=== PATIENT | male | born 1940 | race Caucasian/White ===

== ENCOUNTER 2023-12-01 08:10 | Day surgery (SDC) | payer MEDICARE, OTHER, SELFPAY ==
[2023-11-27 13:33] VITALS: BMI 24.8
[2023-12-01] VITALS (11 sets, daily range): BP systolic 113–135; BP diastolic 69–108; BMI 22.0
[2023-12-01 10:59] LABS: ACT-LR - POC 335 Seconds (116-155)
[2023-12-01 11:22] LABS: ACT-LR - POC 314 Seconds (116-155)
[2023-12-01 12:00] LABS: ACT-LR - POC 371 Seconds (116-155)
--- NOTE | 2023-12-01 12:19 | ITS.CL.ABL ---
[employer] - Ablation
Ablation
Procedure Report:
ELECTROPHYSIOLOGIC STUDY AND POSSIBLE ABLATION
DATE: December 01, 2023
Primary Care Provider: Dr. Mendoza low
Primary Product Finisher: Dr. Idalmis Malhotra
INDICATION:
Symptomatic Atrial Fibrillation and atypical atrial flutter.
Persistent
HISTORY: See H and P.
Symptomatic AF, poorly controlled with attempted medical therapy.
He underwent PVI [facility] in 2010. He has recurred with atrial fibrillation as well as a typical atrial flutter. Of note he also has a remote history of mitral valve repair with an annuloplasty ring.
HAS-BLED: 1
Age
CHADSVASc: 2
Age
PRESENTING RHYTHM: Atypical atrial flutter
HISTORY: See H and P.
Symptomatic AF, poorly controlled with attempted medical therapy.
ANTIARRHYTHMIC DRUG: Metoprolol
ANTICOAGULATION: Apixaban
'TIME-OUT': called and confirmed.
SEDATION/ANESTHESIA: provided via the anesthesia department using general anesthesia.
PROCEDURE:
Ultrasound Guidance performed by ia was utilized for femoral venous Vascular Access b/l.
A decapolar CS catheter was placed within the CS for mapping and pacing.
The intracardiac ultrasound catheter was positioned in the RA for continuous intracardiac ultrasound imaging.
Heparin bolus and infusion to target ACT at 300 -350 seconds was administered. Transseptal puncture was performed. This entailed advancing a sheath with dilator into the superior vena cava and withdrawing both (monitoring intracardiac ultrasound,
fluoroscopy and tip pressure) with the tip oriented toward the atrial septum. The fossa ovalis was engaged (indicated by sudden displacement of the sheath tip as well as tenting of the fossa seen on intracardiac ultrasound).
Partnerbyte transseptal system was used. Left atrial catheter position was confirmed by echocardiographic imaging, pressure monitoring (LA mean pressure 9 mm Hg) and fluoroscopy. The sheath was advanced over the dilator and positioned in the left
atrium.
The multipolar mapping catheter was initially positioned through the transseptal sheath for high density mapping (Sánchez Grid).
Geometry and voltage mapping was performed using the Comply Serve multipolar grid catheter. Navex was utilized for three-dimensional electroanatomical mapping.
Presenting rhythm is an atypical atrial flutter. Entrainment from the right atrium finds this to be outside the tachycardia circuit. Entrainment from the left atrium at the posterolateral mitral valve annulus finds this to be within the
tachycardia circuit. A high density activation map was created and activation is consistent with a xhuuge-ge-huugu tachycardia proceeding down the posterior wall of the left atrium.
The [employer] Pulse Select PFA catheter and system was used for cardiac ablation. Catheter positioning was guided and confirmed using both I.C.E. and fluoroscopy.
Initially pulse electric field energy was delivered at the mitral valve annulus from the left inferior pulmonary vein down to the mitral valve annulus but this did not interrupt the tachycardia. It was then decided to ablate the posterior wall of
the left atrium and during ablation at the floor of the left atrium the tachycardia terminated. Additional ablation was delivered to the posterior wall of the left atrium to completely isolate the left atrium. Of note previous mapping of the
pulmonary veins found isolation at the ostium of the left superior, left inferior, right inferior pulmonary veins but there is reconnection at the right superior pulmonary vein towards its anterior septal quadrant. Pulse electric field energy was
utilized to isolate the right superior pulmonary vein. After ablation, high density electroanatomical mapping was performed demonstrating electrical line of block at the mitral valve annulus from the left inferior pulmonary vein down to the mitral
valve annulus. Additionally high output pacing from this area failed to capture any atrial tissue. There is isolation of the posterior wall of the left atrium as well although there is still significant voltage at the posterior superior left
atrium towards the antrum of the left superior pulmonary vein. The right superior pulmonary vein is now bidirectionally blocked. The ablation catheter was then substituted to provide additional ablation to the posterior wall of the left atrium and
create complete large area posterior wall ablation.
I.C.E. :
Pre-Ablation Post-Ablation
LVEF: 55 % 55 %
WMA: none none
Pericardial effusion: trace trace
COMPLICATIONS:
None
SUMMARY:
- Mapping and ablation to isolate the PVs (right superior pulmonary vein and its anterior superior quadrant)
- Additional AF ablation set after PVI (posterior wall of the left atrium)
- Additional tachycardia map and ablate (mitral annular flutter)
- 3-D Electroanatomical Mapping
- Intracardiac Ultrasound
Post ablation, I discussed today's findings and results with the patient's .
RECOMMENDATIONS:
- Observe in monitored bed.
- Maintain oral anticoagulation.
- Office visit with me in 3 months.
- Continue cardiovascular care with Bala Malhotra
Copy to:
Dr. Donaldson present
Dr. Idalmis Malhotra
--- NOTE | 2023-12-01 15:56 | W.PN.UPDATE ---
Update Note
Progress Note Update
Pt seen post PVI. Bilat groin sites without ht/bleeding, non tender. OOB ambulating. Post EKG NSR 80s w/RBBB as before, no acute changes. Resume eliquis today, continue other meds as before. Followup with Dr. Chapman as scheduled and with
Stram thereafter. Home later today if groin site/tele remain stable.
[2023-12-02 11:03] LABS: ACT-LR - POC > 397 Seconds (116-155)
== END 2023-12-01 17:00 | disposition home or self-care (01) ==
LOC: CATH 08:10
PROVIDERS: ATTENDING PHYSICIAN Internal Medicine Cardiovascular Disease; FAMILY PHYSICIAN Internal Medicine; OTHER PHYSICIAN Internal Medicine Cardiovascular Disease
DX: I48.19 Other persistent atrial fibrillation (principal); Q87.418 Marfan syndrome with other cardiovascular manifestations; I34.1 Nonrheumatic mitral (valve) prolapse; F41.9 Anxiety disorder, unspecified; F32.A Depression, unspecified; N40.0 Benign prostatic hyperplasia without lower urinary tract symptoms; I10 Essential (primary) hypertension; I48.0 Paroxysmal atrial fibrillation; R07.89 Other chest pain; I48.3 Typical atrial flutter; I48.4 Atypical atrial flutter; R06.02 Shortness of breath; R53.83 Other fatigue; R00.2 Palpitations; Z79.01 Long term (current) use of anticoagulants; Z79.899 Other long term (current) drug therapy; G47.00 Insomnia, unspecified
CPT/HCPCS: C1732; C1894; C1733; C1769; C1892; C1730; C1766; 76937; 85347; 86900; 86901; 93005; 93655; 93656; 93657

== ENCOUNTER 2024-04-23 15:54 | Emergency (ER) | payer MEDICARE, OTHER, SELFPAY ==
[2024-04-23] VITALS (21 sets, daily range): BP systolic 114–150; BP diastolic 72–107; BMI 21.7
--- NOTE | 2024-04-23 15:59 | ED.GENMED ---
ED Provider Triage
<Izabella Dempsey PA-C - Last Filed: 04/23/24 16:08>
-
Patient seen by provider in Triage?: Seen in Triage
Attestation: A medical screening examination has been initiated by a qualified medical provider. Based on the assessment performed at this time, it has been determined that an emergent medical condition may exist and the patient has been informed
that further medical evaluation and possible additional diagnostic testing may be needed.
HPI: 83yoM here with palpitations. Feels like heart is racing. Noticed after getting out of the shower around 1pm. Intermittent chest discomfort. Hx of afib.
GENERAL: Alert , in no apparent distress
EYE: No visual abnormalities.
NECK: Trachea midline
ENT: No visible abnormalities.
LUNGS: No acute respiratory distress
NEUROLOGICAL: Alert and oriented
SKIN: Skin intact. No visible changes.
MUSCULOSKELETAL: Moving extremities normally
PSYCH: Normal and appropriate interaction.
This is a medical evaluation conducted in person to initiate diagnostic evaluation and provide initial therapeutics. Please see further documentation by the treating clinician.
Cardiac labs, TSH, magnesium, and EKG ordered.
History of Present Illness
<Izabella Dempsey PA-C - Last Filed: 04/23/24 16:08>
General
Chief Complaint: Heart Rate Problem
Time Seen by Provider: 04/23/24 17:35
<Jose Fields DO - Last Filed: 04/23/24 19:28>
History of Present Illness
History of Present Illness:
TIME OF INITIAL ENCOUNTER: 5:50 PM
HPI: The patient has a history of atrial fibrillation has had an ablation. The patient presents with sensation of palpitations and 'racing heart'. He may have had some chest discomfort earlier in the day. He was mostly concerned because when he
listen to his heart with a stethoscope, he noticed that it was irregular. He had a cardiac ablation with Dr. Chapman this past November. His primary pan puller is at [place].
EXAM:
GENERAL: Well appearing in no distress
HEENT: Moist oral mucosa
CARDIOVASCULAR: No murmurs, normal heart rate, irregular rhythm, No chest wall tenderness
PULMONARY: No respiratory distress, breath sounds are clear and equal
ABDOMEN: Soft with no peritoneal signs, no tenderness
NEUROLOGIC: Excellent strength all extremities, no coordination deficits
PSYCHIATRIC: Appropriate mental status, normal insight and judgement
EXTREMITIES: Nontender, no edema, moves all extremities equally
SKIN: No rash, no lesions
NUMBER AND COMPLEXITY OF PROBLEMS ADDRESSED AT THE ENCOUNTER
� Chronic conditions affecting care: Atrial fibrillation
� Acute Exacerbation and/or Progression of Chronic Illness: This is an acute problem
� Differential Diagnosis includes: Atrial fibrillation, atrial tachycardia, atrial flutter, dysrhythmia, thyroid disease
AMOUNT AND/OR COMPLEXITY OF DATA TO BE REVIEWED AND ANALYZED
� I performed an independent evaluation of and my interpretation is:
EKG: Atrial tachycardia, rate bundle-branch block
CT:
X-rays:
Laboratory Studies: CBC normal, chemistries relatively unremarkable, troponin less than 0.012, TSH normal
Other:
� Review of other/old records: I reviewed the notes from this past November when patient had the ablation
� Clinical information was obtained by an independent historian: I spoke to the at bedside
� Prescriptions/Medications Considered but not given:
� Further testing considered but not performed:
RISK OF COMPLICATIONS AND/OR MORBIDITY OR MORTALITY OF PATIENT MANAGEMENT
� Social determinants of health affecting care: Lives at home
� Discussion with other providers: I discussed case with Dr. Muñoz agree that there is no clear contraindication and he agrees that patient could be cardioverted.
� Escalation of care including admission/observation vs risk of discharge considered: The patient was cardioverted in 1 attempt without difficulty. Overall he feels improved.
ANY OTHER UPDATES:
7 PM: After cardioversion, the patient is back in sinus rhythm. EKG #2 shows sinus rhythm with PVCs, right bundle branch block again noted
Phy Exam
<Jose Fields DO - Last Filed: 04/23/24 19:28>
Physical Exam
Physical Exam:
See HPI
Course
<Izabella Dempsey PA-C - Last Filed: 04/23/24 16:08>
Orders/Labs/Results
Orders:
Orders
04/23/24 15:55
EKG [Electrocardiogram (*1)] Urgent
Reason for Study: Palpitations
EKG- Treatment ONCE
04/23/24 16:17
Complete Blood Count/With Diff Urgent
Comprehensive Metabolic Panel Urgent
Magnesium Urgent
TSH Reflex To Free T4 Urgent
Troponin I Urgent
04/23/24 18:30
Propofol [Diprivan] 20 ml .ROUTE .STK-MED
04/23/24 18:44
EKG with chest pain [ECG as needed] As Directed
ECG as needed for:: Rhythm Change
04/23/24 18:49
EKG [Electrocardiogram (*1)] Urgent
Reason for Study: Atrial Fibrillation
Comment: post cardioversion
04/23/24 18:50
EKG- Treatment ONCE
Abnormal Lab Results
04/23/24
16:17
WBC 4.7 L 10^3/uL
(4.8-10.8)
Absolute Lymphs (auto) 1.0 L 10^3/uL
(1.2-3.4)
Monocytes % 10.3 H %
(1.7-9.3)
Carbon Dioxide 31 H mmol/L
(22-30)
BUN 21 H mg/dl
(9-20)
Glucose 145 H mg/dl
(70-99)
04/23/24 16:17
12/13/24 16:17
Vital Signs
Initial and Last Documented VS:
Initial Vital Signs
Temp Pulse Resp BP Pulse Ox
36.7 C 86 20 117/86 99
04/23/24 16:00 04/23/24 16:00 04/23/24 16:00 04/23/24 16:00 04/23/24 16:00
Last Documented Vital Signs
Temp Pulse Resp BP Pulse Ox
36.6 C 72 17 134/74 99
04/23/24 19:26 04/23/24 19:21 04/23/24 19:21 04/23/24 19:21 04/23/24 19:21
<Jose Fields, DO - Last Filed: 04/23/24 19:28>
Orders/Labs/Results
Orders:
Orders
04/23/24 15:55
EKG [Electrocardiogram (*1)] Urgent
Reason for Study: Palpitations
EKG- Treatment ONCE
04/23/24 16:17
Complete Blood Count/With Diff Urgent
Comprehensive Metabolic Panel Urgent
Magnesium Urgent
TSH Reflex To Free T4 Urgent
Troponin I Urgent
04/23/24 18:30
Propofol [Diprivan] 20 ml .ROUTE .STK-MED
04/23/24 18:44
EKG with chest pain [ECG as needed] As Directed
ECG as needed for:: Rhythm Change
04/23/24 18:49
EKG [Electrocardiogram (*1)] Urgent
Reason for Study: Atrial Fibrillation
Comment: post cardioversion
04/23/24 18:50
EKG- Treatment ONCE
Abnormal Lab Results
04/23/24
16:17
WBC 4.7 L 10^3/uL
(4.8-10.8)
Absolute Lymphs (auto) 1.0 L 10^3/uL
(1.2-3.4)
Monocytes % 10.3 H %
(1.7-9.3)
Carbon Dioxide 31 H mmol/L
(22-30)
BUN 21 H mg/dl
(9-20)
Glucose 145 H mg/dl
(70-99)
04/23/24 16:17
04/23/24 16:17
Vital Signs
Initial and Last Documented VS:
Initial Vital Signs
Temp Pulse Resp BP Pulse Ox
36.7 C 86 20 117/86 99
04/23/24 16:00 04/23/24 16:00 04/23/24 16:00 04/23/24 16:00 04/23/24 16:00
Last Documented Vital Signs
Temp Pulse Resp BP Pulse Ox
36.6 C 72 17 134/74 99
04/23/24 19:26 04/23/24 19:21 04/23/24 19:21 04/23/24 19:21 04/23/24 19:21
Procedures
<Jose Fields, DO - Last Filed: 04/23/24 19:28>
Cardioversion
Indication:: Afib
Performed by:: , Dr. Fields
Synchronized?: Yes
Energy Used: 200 joules
Number of attempts: 1
Successful?: Yes
ASA Risk Score: Class III
Any reaction or bad outcome to prior sedation/anesthesia?: No history of a reaction
Sedation level to be attained: moderate
Chart and allergies reviewed: Yes
Patient reassessed prior to sedation: Yes
Time out completed at (validating right patient & procedure): 18:38
History of difficult intubation: No
Airway free of obstruction: Yes
Patient has a gag reflex: Yes
Patient is able to open mouth: Yes
Patient has no dentures: Yes
Patient has no loose teeth: Yes
Medication administered by Provider during Moderate Sedation: IV Propofol (mg)
Total dose administered: 50
Time drug administered: 18:38
Start Time: 18:38
Stop Time: 18:49
<Jose Fields DO - Last Filed: 04/23/24 19:28>
*Critical Care Note
Total Time (30-74mins, 75-104mins- exclusive of procedures): Not Applicable
ED Attending Note
<Izabella Dempsey PA-C - Last Filed: 04/23/24 16:08>
-
Portions of this chart may have been created with voice recognition software.� Occasional wrong word or��sound alike� substitutions may have occurred due to the inherent limitations of voice recognition software.
Discharge Plan
Departure
Patient Disposition: Home (Routine Discharge)
Date of Disposition: 04/23/24
Time of Disposition: 19:04
Patient with high blood pressure during this ER visit?: Yes
Discharge Problem:
Atrial flutter with rapid ventricular response
Instructions: Atrial Fibrillation (DC)
Prescriptions:
No Action
metoprolol succinate 50 mg Tablet Extended Release 24 Hr
75 mg PO DAILY
metoprolol succinate 50 mg Tablet Extended Release 24 Hr
50 mg PO QPM
tramadol 50 mg Tablet
50 - 100 mg PO Q8H PRN (Reason: pain)
furosemide 20 mg Tablet
20 mg PO DAILY
sertraline [Zoloft] 50 mg Tablet
50 mg PO QPM
loratadine 10 mg Tablet
10 mg PO QPM
Eliquis 5 mg Tablet
5 mg PO BID
spironolactone 25 mg Tablet
25 mg PO MOWEFR
tamsulosin 0.4 mg Capsule
0.4 mg PO QPM
ibuprofen [Advil] 200 mg Tablet
200 mg PO Q6H PRN (Reason: discomfort)
zolpidem [Ambien] 10 mg Tablet
10 mg PO HS PRN (Reason: sleep)
Referrals:
Mendoza Vega DO [Family Provider] -
Cabrera Chapman MD [Active] - Follow up in 5-7 days
Idalmis Malhotra MD [Non-Admitting Privileges] - Follow up in 5-7 days
Activity Restrictions/Additional Instructions:
Continue your medication including the Eliquis. Follow-up with your pan puller either at [place] or with Dr. Chapman. Return here if worse or other concerns.
Interventions
Interventions:
*Risk Screen - Suicide Last Done: 04/23/24 18:25
*General Assessment Last Done: 04/23/24 16:00
*Neglect/Abuse Screening Last Done: 04/23/24 18:25
*ED COVID-19 Vaccine History Last Done: 04/23/24 18:25
ED- Cardiac Assessment Last Done: 04/23/24 18:25
ED- Pulmonary Assessment Last Done: 04/23/24 18:25
Discharge Date and Time
Print Language: BELARUSIAN
[2024-04-23 16:38] LABS: % Basophils 1.3 % (0-2); % Immature Granulocytes 0.2 % (0-0.5); % Lymphocytes 21.1 % (20.5-51.1); % Monocytes 10.3 % (1.7-9.3); % Neutrophils 64.1 % (42.2-75.2); Absolute Basophils 0.1 10^3/uL (0-0.2); Absolute Eosinophils 0.1 10^3/uL (0-0.7); Absolute Monocytes 0.5 10^3/uL (0.1-0.6); Hematocrit 43.2 % (39.0-52.0); Hemoglobin 14.3 g/dL (13.0-18.0); Mean Corp Hgb Conc. 33.1 g/dL (33.0-37.0); Mean Corpuscular Hgb 29.4 pg (27.0-31.0); Mean Corpuscular Volume 88.7 fL (80.0-94.0); Mean Platelet Volume 8.6 fL (7.4-10.4); Nucleated Red Blood Cells % 0 % (-); Platelet Count 242 10^3/uL (130-400); Red Blood Cell Count 4.87 10^6/uL (4.70-6.10); Red Cell Dist. Width 13.3 % (11.5-14.5); White Blood Cell Count 4.7 10^3/uL (4.8-10.8)
[2024-04-23 16:42] LABS: ALT (SGPT) 23 U/L (0-50); AST (SGOT) 32 U/L (17-59); Albumin 4.5 g/dl (3.5-5.0); Alkaline Phosphatase 60 U/L (38-126); Blood Urea Nitrogen 21 mg/dl (9-20); Calcium 9.5 mg/dl (8.4-10.2); Carbon Dioxide 31 mmol/L (22-30); Chloride 98 mmol/L (98-107); Glucose 145 mg/dl (70-99); Magnesium 2.1 mg/dl (1.6-2.3); Potassium 4.9 mmol/L (3.5-5.1); Sodium 136 mmol/L (135-145); Total Protein 7.5 g/dl (6.3-8.2); eGFR > 60.00
[2024-04-23 16:53] LABS: Troponin I < 0.012 ng/ml
[2024-04-23 17:12] LABS: TSH Reflex To Free T4 1.02 uIU/ml (0.47-4.68)
--- NOTE | 2024-04-23 18:55 | EDRN ---
Propofol given by MD Fields in the following doses and times:
Propofol 20mg @1838
Propofol 20 mg @ 1839
Propofol 10mg @1840
== END 2024-04-23 19:43 | disposition home or self-care (01) ==
LOC: EMR 15:54
PROVIDERS: Physician Assistant; EMERGENCY PHYSICIAN Emergency Medicine; FAMILY PHYSICIAN Internal Medicine
DX: I48.92 Unspecified atrial flutter (principal); R03.0 Elevated blood-pressure reading, without diagnosis of hypertension
CPT/HCPCS: 92960; 99285; 99152; 80053; 83735; 84443; 84484; 85025; 93005

== ENCOUNTER 2024-11-05 19:33 | Emergency (ER) | payer MEDICARE, OTHER, SELFPAY ==
[2024-11-05 19:37] VITALS: BP 150/89; BMI 22.1
[2024-11-05 19:38] VITALS: BP 150/89
[2024-11-05 20:00] VITALS: BP 128/82
[2024-11-05 20:05] LABS: % Basophils 1.1 % (0-2); % Eosinophils 11.8 % (0-6); % Immature Granulocytes 0.2 % (0-0.5); % Lymphocytes 17.7 % (20.5-51.1); % Monocytes 11.5 % (1.7-9.3); % Neutrophils 57.7 % (42.2-75.2); Absolute Basophils 0.1 10^3/uL (0-0.2); Absolute Eosinophils 0.8 10^3/uL (0-0.7); Absolute Lymphocytes 1.2 10^3/uL (1.2-3.4); Absolute Monocytes 0.8 10^3/uL (0.1-0.6); Absolute Neutrophils 3.8 10^3/uL (1.4-6.5); Hematocrit 35.9 % (39.0-52.0); Hemoglobin 12.2 g/dL (13.0-18.0); Mean Corpuscular Volume 85.3 fL (80.0-94.0); Mean Platelet Volume 8.4 fL (7.4-10.4); Nucleated Red Blood Cells % 0 % (-); Platelet Count 197 10^3/uL (130-400); Red Blood Cell Count 4.21 10^6/uL (4.70-6.10); Red Cell Dist. Width 13.2 % (11.5-14.5); White Blood Cell Count 6.6 10^3/uL (4.8-10.8)
[2024-11-05 20:21] LABS: ALT (SGPT) 23 U/L (0-50); AST (SGOT) 31 U/L (17-59); Alkaline Phosphatase 65 U/L (38-126); Blood Urea Nitrogen 20 mg/dl (9-20); Calcium 9.1 mg/dl (8.4-10.2); Carbon Dioxide 27 mmol/L (22-30); Chloride 101 mmol/L (98-107); Estimated Creatinine Clearance 100 ml/min; Glucose 96 mg/dl (70-99); Potassium 4.3 mmol/L (3.5-5.1); Sodium 133 mmol/L (135-145); Total Protein 6.7 g/dl (6.3-8.2); eGFR > 60.00
[2024-11-05 20:28] LABS: Troponin I < 0.012 ng/ml
[2024-11-05 21:00] VITALS: BP 122/73
[2024-11-05 22:00] VITALS: BP 143/87
[2024-11-05 23:00] VITALS: BP 128/91
[2024-11-06] VITALS: BP 124/81
[2024-11-06 01:00] VITALS: BP 137/92
[2024-11-06 01:19] LABS: NT-proBNP 3140 pg/ml
[2024-11-06 01:50] LABS: Troponin I < 0.012 ng/ml
[2024-11-06 02:00] VITALS: BP 143/101
--- NOTE | 2024-11-06 02:44 | ED.GENMED ---
History of Present Illness
General
Chief Complaint: Heart Rate Problem
Source: patient and spouse
Time Seen by Provider: 11/05/24 23:33
History of Present Illness
History of Present Illness:
84-year-old male presents to the emergency room for evaluation of feeling generally weak over the past couple days. He had an episode of chest tightness today. He noted his heart rate is irregular. He has a history of atrial fibrillation and has
had cardioversions in the past. Patient is known to Dr. Chapman and has had ablation in the past. 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 Patient denies any recent changes medications. He has been compliant with Eliquis.
Phy Exam
Physical Exam
Physical Exam:
General: Awake, Alert, Oriented X3. No acute distress. Appears stated age
Vitals: unremarkable
Head: Atraumatic
Eyes: Pupils equal, EOMI
Throat: Airway intact, no exudates
Neck: Trachea midline
Lungs: Clear and equal b/l
Heart: irregular rate, no murmurs
Abd: Soft, Nontender, No pulsatile mass
Neuro: Nonfocal
Skin: Warm, dry, no rash
Extremities: pulses equal b/l, no edema
Course
Orders/Labs/Results
Orders:
Orders
11/05/24 19:40
EKG [Electrocardiogram (*1)] Urgent
Reason for Study: Tachycardia
EKG- Treatment ONCE
11/05/24 19:52
Complete Blood Count/With Diff Urgent
Comprehensive Metabolic Panel Urgent
NT-proBNP Urgent
Comment: ADDED
Troponin I Urgent
11/06/24 00:26
Add On- LAB Urgent
Tests Added?: bnp
CR Chest - 2 Views Urgent
Comment:
Reason For Exam: sob, chest pain
11/06/24 00:48
Troponin I Urgent
Abnormal Lab Results
11/05/24
19:52
RBC 4.21 L 10^6/uL
(4.70-6.10)
Hgb 12.2 L g/dL
(13.0-18.0)
Hct 35.9 L %
(39.0-52.0)
Absolute Monos (auto) 0.8 H 10^3/uL
(0.1-0.6)
Absolute Eos (auto) 0.8 H 10^3/uL
(0-0.7)
Lymphocytes % 17.7 L %
(20.5-51.1)
Monocytes % 11.5 H %
(1.7-9.3)
Eosinophils % 11.8 H %
(0-6)
Sodium 133 L mmol/L
(135-145)
11/05/24 19:52
11/05/24 19:52
Vital Signs
Initial and Last Documented VS:
Initial Vital Signs
Temp Pulse Resp BP Pulse Ox
98.0 F 77 24 150/89 99
11/05/24 19:37 11/05/24 19:37 11/05/24 19:37 11/05/24 19:37 11/05/24 19:37
Last Documented Vital Signs
Temp Pulse Resp BP Pulse Ox
98.0 F 76 23 143/101 98
11/05/24 19:37 11/06/24 02:45 11/06/24 02:45 11/06/24 02:00 11/06/24 02:45
MDM/Problems Addressed
Differential Diagnosis Includes:
A-fib with rapid ventricular response, controlled A-fib, electrolyte abnormality, heart failure
MDM/Problems Addressed:
Patient presents feeling weak, lack of energy, irregular heartbeat. Also had an episode of chest discomfort. Patient has a history of paroxysmal A-fib and has had cardioversion in the past. He does take Eliquis and has not missed any doses. On
arrival here to the emergency room the patient is in A-fib with a controlled rate. He has no evidence of heart failure. Troponins negative x 2. Given the patient has a controlled rate and is stable there is no indication for emergent
cardioversion. Patient can be discharged home to follow-up with cardiology as an outpatient.
*Radiology
Radiology exam reviewed: preliminary read by ED provider (No acute abnormality)
*Pulse Oximetry
SaO2: 98
Oxygen Mode of Delivery: Room air
Patient hypoxic: no
*EKG
Interpreted by ED Provider?: Yes
Heart Rate: 76
Rate: normal
Rhythm: a-fib
Interval: normal interval
QRS Pattern: right bundle branch block
Ischemia: no ischemia
*Critical Care Note
Total Time (30-74mins, 75-104mins- exclusive of procedures): Not Applicable
Data Reviewed
Further Testing Considered But Not Given:
Considered cardioversion but he is not unstable. His troponins are normal. He is not heart failure. Rate is controlled. No indication for urgent or emergent cardioversion
ED Attending Note
-
Portions of this chart may have been created with voice recognition software.� Occasional wrong word or��sound alike� substitutions may have occurred due to the inherent limitations of voice recognition software.
Discharge Plan
Departure
Patient Disposition: Home (Routine Discharge)
Date of Disposition: 11/06/24
Time of Disposition: 02:45
Patient with high blood pressure during this ER visit?: No
Condition: Good
Discharge Problem:
Atrial fibrillation
Instructions: Atrial Fibrillation (DC)
Prescriptions:
No Action
metoprolol succinate 50 mg Tablet Extended Release 24 Hr
75 mg PO DAILY
metoprolol succinate 50 mg Tablet Extended Release 24 Hr
50 mg PO QPM
tramadol 50 mg Tablet
50 - 100 mg PO Q8H PRN (Reason: pain)
furosemide 20 mg Tablet
20 mg PO DAILY
sertraline [Zoloft] 50 mg Tablet
50 mg PO QPM
loratadine 10 mg Tablet
10 mg PO QPM
Eliquis 5 mg Tablet
5 mg PO BID
spironolactone 25 mg Tablet
25 mg PO MOWEFR
tamsulosin 0.4 mg Capsule
0.4 mg PO QPM
ibuprofen [Advil] 200 mg Tablet
200 mg PO Q6H PRN (Reason: discomfort)
zolpidem [Ambien] 10 mg Tablet
10 mg PO HS PRN (Reason: sleep)
Referrals:
Mendoza Vega DO [Family Provider, Internal Medicine]
Cabrera Chapman MD [Active, Cardiology]
Interventions
Interventions:
*Risk Screen - Suicide Last Done: 11/05/24 19:37
*General Assessment Last Done: 11/05/24 19:37
*Neglect/Abuse Screening Last Done: 11/05/24 19:37
*ED- Fall Risk Assessment Last Done: 11/05/24 19:37
*ED COVID-19 Vaccine History Last Done: 11/05/24 19:37
*Nursing Disposition Last Done: 11/06/24 02:59
ED- Cardiac Assessment Last Done: 11/05/24 19:55
ED- Pulmonary Assessment Last Done: 11/05/24 19:55
Discharge Date and Time
Discharge Date/Time: 11/06/24 03:00
Print Language: MOHAWK
== END 2024-11-06 03:00 | disposition home or self-care (01) ==
LOC: EMR 19:33
PROVIDERS: Student in an Organized Health Care Education/Training Program; EMERGENCY PHYSICIAN Emergency Medicine; FAMILY PHYSICIAN Internal Medicine
DX: I48.0 Paroxysmal atrial fibrillation (principal); I45.10 Unspecified right bundle-branch block; Z79.01 Long term (current) use of anticoagulants
CPT/HCPCS: 99285; 71046; 80053; 83880; 84484; 85025; 93005

== ENCOUNTER 2024-11-18 10:22 | Day surgery (SDC) | payer MEDICARE, OTHER, SELFPAY ==
--- NOTE | 2024-11-18 12:24 | ITS.CL.CARDI ---
[facility] - Cardioversion
Cardioversion
Procedure Report:
Date of Procedure: November 18 2024
Procedure: Cardioversion
Indication: Symptomatic atrial fibrillation
Performing Physician: Adriano Hale DO, FACC
Technique: The patient was brought to the holding area. Signed informed consent was obtained. A time out was called and performed. The patient was anesthetized by the anesthesia service. Anticoagulation status was reviewed and appropriate. R2 pads
were placed anteriorly and posteriorly. A 200 J synchronized biphasic shock restored normal sinus rhythm without significant bradycardia. There were no complications.
Conclusion: Uncomplicated cardioversion from atrial fibrillation to sinus rhythm.
Recommendation: Routine post cardioversion care. Continue [facility] anticoagulation.
== END 2024-11-18 12:51 | disposition home or self-care (01) ==
LOC: CATH 10:22
PROVIDERS: ATTENDING PHYSICIAN Nuclear Medicine Nuclear Cardiology; FAMILY PHYSICIAN Internal Medicine; REFERRING PHYSICIAN Internal Medicine Cardiovascular Disease
DX: I48.0 Paroxysmal atrial fibrillation (principal); I48.4 Atypical atrial flutter; Z79.01 Long term (current) use of anticoagulants; Z79.82 Long term (current) use of aspirin; I10 Essential (primary) hypertension
CPT/HCPCS: 92960; 93005

== ENCOUNTER → 2025-01-14 13:08 | Outpatient (REF) | payer MEDICARE, OTHER, SELFPAY ==
[2025-01-14 14:00] LABS: Hematocrit 35.4 % (39.0-52.0); Hemoglobin 11.8 g/dL (13.0-18.0); Mean Corp Hgb Conc. 33.3 g/dL (33.0-37.0); Mean Corpuscular Volume 86.6 fL (80.0-94.0); Nucleated Red Blood Cells % 0 % (-); Platelet Count 191 10^3/uL (130-400); Red Cell Dist. Width 14.0 % (11.5-14.5)
[2025-01-14 14:09] LABS: INR 1.14; PT 14.9 Sec (11.4-14.6)
[2025-01-14 14:54] LABS: ALT (SGPT) 20 U/L (0-50); AST (SGOT) 27 U/L (17-59); Albumin 3.8 g/dl (3.5-5.0); Alkaline Phosphatase 68 U/L (38-126); Blood Urea Nitrogen 20 mg/dl (9-20); Calcium 9.2 mg/dl (8.4-10.2); Carbon Dioxide 30 mmol/L (22-30); Chloride 98 mmol/L (98-107); Glucose 103 mg/dl (70-99); Magnesium 1.9 mg/dl (1.6-2.3); Potassium 4.4 mmol/L (3.5-5.1); Sodium 132 mmol/L (135-145); Total Protein 6.5 g/dl (6.3-8.2); eGFR > 60.00
== END ==
LOC: SDSPAT 13:08
PROVIDERS: ATTENDING PHYSICIAN Internal Medicine Cardiovascular Disease; FAMILY PHYSICIAN Internal Medicine; OTHER PHYSICIAN Internal Medicine Cardiovascular Disease
DX: I48.0 Paroxysmal atrial fibrillation (principal)
CPT/HCPCS: 36415; 80053; 83735; 85025; 85610; 86850; 86900; 86901; 93005

== ENCOUNTER 2025-02-09 10:09 | Day surgery (SDC) | payer MEDICARE, OTHER, SELFPAY ==
[2025-01-14 13:34] VITALS: BMI 22.0
--- NOTE | 2025-01-14 14:28 | HPS.HSE ---
Family Physician
-
Family Physician: INTERVIEWE UNKNOWN - PT NOT
Chief Complaint
-
Paroxysmal atrial fibrillation.
History of Present Illness
The patient is an 84 year old male presenting today for paroxysmal atrial fibrillation. He does report symptoms of fatigue, weakness, and exertional dyspnea, all likely associated with this diagnosis. He previously underwent 2
cardioversions, with the last occurring in November of this year, and pulmonary vein isolation in 2010 and, more recently, in November 2023. He is on current pharmacological therapy with Metoprolol Succinate. He does report compliance with Eliquis for oral
anticoagulation due to a [id number] of 3. Given his significant symptoms associated with his arrhythmia, he is interested in pursuing pulmonary vein isolation for more definitive arrhythmia management. He denies any complaints today such as chest
pain, shortness of breath at rest, nausea, vomiting, diarrhea, lightheadedness, dizziness, cough, sore throat, or fever.
Medical History
Past Medical History
Past Medical History: Reports Other
Additional Past Medical History:
1. Paroxysmal atrial fibrillation and atypical atrial flutter, status post cardioversion x2 and pulmonary vein isolation 2010 and 11/2023; pharmacological therapy with Metoprolol Succinate and oral anticoagulation with Eliquis.
2. Hypertension.
3. Right bundle branch block.
4. PVCs, asymptomatic.
5. Marfan syndrome.
6. Severe mitral regurgitation/mitral valve prolapse, status post mitral valve annuloplasty ring repair 1998.
7. Venous varicosities.
8. Opioid dependence.
9. BPH.
10. Mild anemia.
11. Depression.
12. Anxiety.
13. Insomnia.
14. Mild leukopenia.
15. Chronic, mild hyponatremia.
16. Remote history of tobacco abuse.
Past Surgical History: Reports Other
Additional Past Surgical History:
1. Pulmonary vein isolation x2.
2. Cardioversion x2.
3. Mitral valve annuloplasty ring repair.
4. Appendectomy.
5. Left lower extremity venous ablation.
Social History
Tobacco: Former Smoker (He is a former 1 pack per day cigarette smoker who quit tobacco altogether 27 years ago. )
Alcohol: None
Personal:
Living: Other (He lives in a split-level home with his . )
Family History
Family History: Not pertinent
Allergies / Home Medications
Allergy/Medication List:
HOME MEDICATIONS:
1. Eliquis 5 mg p.o. twice a day.
2. Furosemide 20 mg p.o. daily.
3. Loratadine 10 mg p.o. daily.
4. Metoprolol succinate 75 mg p.o. daily, 50 mg at p.o. bedtime.
5. Sertraline 50 mg p.o. daily.
6. Ibuprofen 200 mg p.o. every 6 hours as needed.
7. Spironolactone 25 mg p.o. Friday, Friday, and Friday.
8. Tamsulosin 0.4 mg p.o. every evening.
9. Tramadol 50-100 mg p.o. every 8 hours as needed.
10. Ambien 10 mg at p.o. bedtime.
ALLERGIES: Oxycodone. Adhesive tape.
ADVERSE DRUG REACTIONS: Losartan. Quinapril.
Review of Systems
-
A 12 point ROS was completed and negative except as noted: Yes
Physical Exam
Vital Signs
Blood pressure 144/76. Heart rate 71. Respirations 18. Pulse ox 100% on room air.
Height 6 feet, 6 inches. Weight 86.2 kg. BMI 22.0.
Physical Exam
General: Well Developed, Well Nourished and No Apparent Distress
HEENT: NormoCephalic, Moist mucous membranes, Atraumatic and PERRLA
Respiratory: Clear
Cardiac: Regular Rhythm
GI: Soft, Non Tender and Non Distended
Musculoskeletal: No Edema and Normal Gait & Station
Skin: Warm and Dry
Neuro: AO x 3 and Nonfocal/grossly intact
Laboratory Results
-
DIAGNOSTIC STUDIES as of 01/14/2025: White blood cell count 4.2. Hemoglobin 11.8. Platelet count 191,000. PT 14.9. INR 1.14. Sodium 132. Potassium 4.4. BUN 20. Creatinine 0.7. Glucose 103. Calcium 9.2. Magnesium 1.9. AST 27. ALT 20. Albumin 3.8.
Type and screen A positive.
EKG 01/14/2025: Normal sinus rhythm. Right bundle branch block.
Impression/Plan
-
IMPRESSION/PLAN:
1. Paroxysmal atrial fibrillation: The patient is in need of a pulmonary vein isolation with Dr. Cabrera Chapman on 02/09/2025. The benefits and risks of the procedure have been explained to the patient. The patient understands these risks and
wishes to proceed. He will not be required to undergo a pre-procedural transesophageal echocardiogram as he has been compliant with his home oral anticoagulation. He is aware to continue Eliquis uninterrupted prior to his ablation. He will take no
medications the morning of his ablation.
[2025-02-09] VITALS (9 sets, daily range): BP systolic 116–140; BP diastolic 73–90
[2025-02-09] MEDS: TYLENOL 1000 MG PO (12:09)
--- NOTE | 2025-02-09 12:10 | ITS.CL.ABL ---
Manager Eligibility - Ablation
Ablation
Procedure Report:
ELECTROPHYSIOLOGIC STUDY AND POSSIBLE ABLATION
DATE: 02/09/25
Primary Care Provider: Dr. Mendoza Vega
Primary Community Development Technician: Dr. Idalmis Malhotra
INDICATION:
Symptomatic Atrial Fibrillation.
Paroxysmal
HISTORY: See H and P.
Symptomatic AF, poorly controlled with attempted medical therapy
HAS-BLED: 1
Age
CHADSVASc: 2
Age
PRESENTING RHYTHM: SR
HISTORY: See H and P.
Symptomatic AF, poorly controlled with attempted medical therapy.
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
He was initially referred for electrophysiologic consultation from Dr. Idalmis Malhotra regarding symptomatic atrial tachyarrhythmia.
His medical history includes atrial fibrillation for which he underwent PVI at the [facility] in 2010.� It is noted that he has been maintaining sinus rhythm until very recently (2023) when he was found to have symptomatic atrial
flutter.� He was started on oral anticoagulation, Eliquis.� He was been referred for further evaluation and management of atrial flutter.� He underwent EP study and ablation on 12/01/2023 ([employer] Pulse Select ) including reisolation of the
pulmonary veins as well as left atrial posterior wall ablation and mitral annular flutter ablation utilizing pulsed electric field energy.
He had another recurrence of atrial fibrillation in April 2024 and was in [place] ED where he had a cardioversion.� He reports he also had an episode in June 2024 and self converted to sinus rhythm.��
ED visit on 11/05/2024 for an episode of chest tightness, irregular heart rate, and weakness. He was found to be in atrial fibrillation with controlled ventricular response. Troponins were negative x 2.� He was not in heart failure.� Underwent
successful cardioversion on November 18, 2024.
ANTICOAGULATION: Eliquis 5 mg twice daily
'TIME-OUT': called and confirmed.
SEDATION/ANESTHESIA: provided via the anesthesia department using general anesthesia.
PROCEDURE:
Ultrasound Guidance with real-time visualization of needle insertion and vessel patency performed by me for femoral venous Vascular Access.
Under real-time US guidance, the needle was advanced with negative pressure into the vein. The needle was seen entering the vessel lumen with a good return of dark red flow, the syringe was removed, non-pulsatile, dark red blood low was noted and
the wire was passed without difficulty, then the needle was removed. US confirmed the wire was in the vein, not going into an artery,
Images were taken and saved for the patient's permanent record. Imaging findings typical femoral venous anatomy. Direct visualization of needle puncture into the femoral vein was observed and recorded.
A decapolar CS catheter was placed within the CS for mapping and pacing.
The intracardiac ultrasound catheter was positioned in the RA for continuous intracardiac ultrasound imaging.
Heparin bolus and infusion to target ACT at 300 -350 seconds was administered. Transseptal puncture was performed. This entailed advancing a sheath with dilator into the superior vena cava and withdrawing both (monitoring intracardiac ultrasound,
fluoroscopy and tip pressure) with the tip oriented toward the atrial septum. The fossa ovalis was engaged (indicated by sudden displacement of the sheath tip as well as tenting of the fossa seen on intracardiac ultrasound).
Transseptal puncture was performed. Left atrial catheter position was confirmed by echocardiographic imaging, pressure monitoring (LA mean pressure 4 mm Hg) and fluoroscopy. The sheath was advanced over the dilator and positioned in the left
atrium.
The [employer] multipolar mapping/ablation Sphere-9 catheter was positioned through the transseptal sheath for high density mapping.
Geometry and voltage mapping was performed using the [employer] mapping system for three-dimensional electroanatomical mapping.
Catheter positioning was guided and confirmed using both I.C.E. and fluoroscopy.
High density electroanatomical three-dimensional mapping demonstrated four PVs: LSPV, LIPV, RSPV, RIPV.
Voltage mapping as well as sinus rhythm activation mapping found reconnection at the right superior pulmonary vein towards its anterior superior quadrant.
Ablation strategy included PVI as well as mapping for extra PV contributors to atrial fibrillation which would also be targeted if present.
Delivery of pulsed electric field energy via the sphere 9 catheter at the right superior pulmonary vein towards its anterior superior quadrant isolated the pulmonary vein.
After accomplishing pulmonary venous isolation, mapping identified additional areas likely to be extra PV contributors to atrial fibrillation. These areas demonstrated patchy low voltage as well as complex fractionated electrograms. These areas can
be sites for the formation of rotors which can drive and maintain atrial fibrillation. These areas are known to be significant contributors to initiation and perpetuation of atrial fibrillation.
Additional energy applications/additional ablation sets targeted extra PV contributors to atrial fibrillation.
Targets for additional PFA ablation included:
LA posterior wall targeted with pulsed electric field energy isolating the posterior wall of the left atrium
Posterior wall isolation was performed last procedure but there has been reconnection at the posterior wall at the upper posterior wall towards the left superior pulmonary vein.
This area was targeted with pulsed electric field energy delivery via the sphere 9 catheter resulting in full isolation of the posterior wall.
After ablation of the posterior wall, additional targets were addressed:
The ridge of tissue between the left atrial appendage and the left sided pulmonary veins (Ligament of Johnny )
These areas were ablated using pulsed electric field energy eliminating the extra PV contributors to atrial fibrillation.
Post ablation mapping finds entrance and exit block at each of the pulmonary veins (LSPV, LIPV, RSPV, RIPV), the LA posterior wall and at the additional line at the Ligament of Marshal rendering the sites no longer able to contribute to atrial
fibrillation.
Programmed electrostimulation including burst atrial pacing as well the delivery of decremental extrastimuli down to atrial effective refractory period and no sustained arrhythmias could be induced.
I.C.E. :
Pre-Ablation Post-Ablation
LVEF: 55 % 55 %
WMA: none none
Pericardial effusion: none none
LA Pressure 4 4
COMPLICATIONS:
None
SUMMARY:
- Mapping and ablation to isolate the PVs resulting in electrical isolation of the pulmonary veins
- Additional AF ablation sets X 2 after PVI (LA posterior wall, ligament of Marshal) resulting in elimination of the targeted extra PV contributors to atrial fibrillation.
- 3-D Electroanatomical Mapping
- Intracardiac Ultrasound
- Ultrasound guidance for vascular access
Post ablation, I discussed today's findings and results with the patient's , Cherie.
RECOMMENDATIONS:
- Observe in monitored bed.
- Maintain oral anticoagulation.
- Post ablation office will be arranged with Eileen Carbone NP in 3 to 4 months
- Maintain cardiovascular care with primary high school drafting teacher, Dr. Idalmis Malhotra
Copy to:
Dr. Mendoza Vega
Primary Community Development Technician: Dr. Idalmis Malhotra
[2025-02-09 13:44] LABS: ACT-LR - POC 327 Seconds (116-155)
--- NOTE | 2025-02-09 17:29 | W.PN.UPDATE ---
Update Note
Progress Note Update
84 yo WM s/p PVI (same day). He denies cp, sob, jacque diet, EKG SR PAC's, RBBB, R fem site c/d/i vascade. He will resume Eliquis tonight and continue metoprolol. Activity restrictions reviewed. He will f/u DR. Herr in 3 mo. He had urinary retention and
flomax was given. If able to void he is for d/c home after 5pm.
== END 2025-02-09 18:03 | disposition home or self-care (01) ==
LOC: CATH 10:09
PROVIDERS: ATTENDING PHYSICIAN Internal Medicine Cardiovascular Disease; FAMILY PHYSICIAN Internal Medicine; OTHER PHYSICIAN Internal Medicine Cardiovascular Disease
DX: I48.0 Paroxysmal atrial fibrillation (principal); I48.92 Unspecified atrial flutter; Z79.01 Long term (current) use of anticoagulants; I10 Essential (primary) hypertension
CPT/HCPCS: 85347; 93005; 93656; 93657; C1730; C1733; C1760; C1766; C1892; C1894